=== PATIENT | female | born 1975 | race Hispanic/Latino ===

== ENCOUNTER 2021-12-24 15:06 | Emergency (ER) | payer SELFPAY ==
[2021-12-24 15:45] LABS: Urine Blood Negative (Negative); Urine Glucose Negative (Negative); Urine Protein Trace (Negative); Urine Specific Gravity 1.025 (1.005-1.030)
[2021-12-24 15:51] LABS: Urine Specific Gravity/Preg 1.025 (1.005-1.030)
[2021-12-24] MEDS ORDERED: HYDROMORPHONE HCL 1 MG/ML INJ ONE (16:07)
[2021-12-24] MEDS ORDERED: dexAMETHasone 4 MG/ML VIAL ONE (16:07)
[2021-12-24] MEDS ORDERED: KETOROLAC 30 MG/ML INJ ONE (16:07)
[2021-12-24] MEDS ORDERED: DIAZEPAM 10 MG/2 ML INJ SYRINGE ONE (16:24)
--- NOTE | 2021-12-24 16:25 | RAD REPORT ---
EXAM DESCRIPTION: CT - Spine Lumbar Wo Con - 12/24/2021 4:01 pm CLINICAL HISTORY: radicular pain COMPARISON: None. TECHNIQUE: Thin section axial imaging of the lumbar spine was performed. Sagittal and coronal recon struction images were generated and reviewed. All CT scans are performed using dose optimization technique as appropriate and may include automated exposure control or mA/KV adjustment according to patient size. FINDINGS: Lumbar bodies are normal in height. No acute fracture. No lytic, sclerotic or expansile [place] destructive process. There is a very slight retrolisthesis of L1 on L2. Endplate spurs are scatter ed throughout the lumbar spine. No pathologic bone process seen. L1-2 level: Mild central canal disc bulge is seen with left foraminal disc bulge. Midline canal is 10 mm. Left foraminal encroachment is minimal. L2-3 level: Slight loss in disc height noted. Degenerative gas in the disc space. Mild bulging of dis c material seen across the central canal and into each exit foramen. Bulging disc is more prominent o n the left. There is facet degenerative change and ligamentous thickening present. Left foraminal jaymie nosis is present. L3-4 level: Mild bulging of disc material is present in the central canal and right exit foramen. Rig ht facet hypertrophy is present with mild right foraminal stenosis. Central canal is borderline steno tic. Degenerative gas is present in the disc space. L4-5 disc level: Midline disc bulge is present. No foraminal stenosis. Facet joint degenerative reeves es are present. L5-S1 level: Slight anterior subluxation of L5 on S1 due to advanced facet joint degenerative change. No pars defects seen. Mild bilateral foraminal stenosis present. No central spinal stenosis. IMPRESSION: No fracture or acute vertebral body finding identifiable. Disc bulge changes are present at multiple levels with borderline central spinal stenosis and multipl e levels of foraminal stenosis. Central canal detail is inherently limited. Follow-up outpatient MR imaging may be helpful to more se nsitively assess affects of protruding disc material.
[2021-12-24 16:39] LABS: Absolute Lymphocytes (CBC) 1.4 K/uL (0.7-4.9); Hematocrit 41.4 % (36.0-45.0); Lymphocytes % 14.6 % (15.3-44.8); MCV 93.4 fL (80-100); MPV 9.4 fL (7.6-11.3); RBC Red Blood Cell Count 4.44 M/uL (3.86-4.86)
[2021-12-24 16:49] LABS: Potassium 3.5 mmol/L (3.5-5.1)
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
[2021-12-26 02:59] VITALS: TEMP 98.4
[2021-12-26 03:02] VITALS: BP 189/109; O2SAT 96
== END 2021-12-24 17:23 | disposition home or self-care (01) ==
LOC: ER 15:06
DX: M54.32 Sciatica, left side (principal)
CPT/HCPCS: 36415; 72131; 80048; 81003; 81025; 85025; 96374; 96375; 99284; J1100; J1170; J3360

== ENCOUNTER 2022-05-17 08:11 | Day surgery (SDC) | payer OTHER, SELFPAY ==
[2022-05-15 10:07] LABS: Potassium 3.6 mmol/L (3.5-5.1)
--- NOTE | 2022-05-17 08:03 | EKG ---
Test Date: 2022-05-15 Test Time: 09:35:14 Finance Business Manager: RICKEY MEASUREMENT RESULTS: Intervals: Rate: 61 NH: 144 QRSD: 94 QT: 402 QTc: 404 [place]: P: 50 NH: 144 QRS: 88 T: 5 INTERPRETIVE STATEMENTS: Normal sinus rhythm Normal ECG No previous ECG available for comparison Electronically Signed On 05-17-22 07:57:10 BUTTON SPINDLER by Jordan Gonzalez
[2022-05-17] MEDS ORDERED: Ringers Lactate 1,000 ML IV ONE ×2 (08:37→10:28)
[2022-05-17] MEDS ORDERED: propofoL 200 MG/20 ML VIAL IV ONE (08:47)
[2022-05-17] MEDS ORDERED: FENTANYL CITR 100 MCG/2 ML ONE (08:47)
[2022-05-17] MEDS ORDERED: KETOROLAC 30 MG/ML INJ ONE (08:47)
[2022-05-17] MEDS ORDERED: dexAMETHasone 10 MG/ML VIAL ONE (08:47)
[2022-05-17] MEDS ORDERED: MIDAZOLAM HCL 2 MG/2 ML INJ ONE (08:47)
[2022-05-17] MEDS ORDERED: ROCURONIUM 50 MG/5 ML VIAL IV ONE (08:48)
[2022-05-17] MEDS ORDERED: LIDOCAINE 2% MPF 5 ML VIAL ONE (08:48)
[2022-05-17] MEDS ORDERED: ONDANSETRON 4 MG/2 ML VIAL ONE (08:49)
[2022-05-17] MEDS: CEFAZOLIN SODIUM 2 GM/VIAL ONE ×2 (09:29→09:40)
--- NOTE | 2022-05-17 10:35 | P.OP ---
Preoperative diagnosis: Umbilical Hernia - Incarcerated Postoperative diagnosis: Umbilical Hernia - Incarcerated Primary procedure: Laparoscopic Umbilical Hernia Repair Anesthesia: GETA + Local Estimated blood loss: < 10cc Specimen: none Findings: Incarcerated omental henria - 5cm in size Complications: None Implants: Bard Ventralite ST 11.4cm Round, sorbafix Transferred to: Recovery Room Condition: Good
[2022-05-17] MEDS: HYDROMORPHONE HCL 2 MG/ML inj ONE ×4 (10:51→11:11)
--- NOTE | 2022-05-17 11:02 | OP ---
Date of Procedure: 05/17/2022 Surgeon: Poncho Rose MD, Preoperative Diagnosis: Umbilical hernia, incarcerated. Postoperative Diagnosis: Umbilical hernia, incarcerated. Procedure Performed: Laparoscopic umbilical hernia repair with mesh. Anesthesia: General endotracheal plus local. Estimated Blood Loss: Less than 10 cc. Specimen: None. Findings: Incarcerated omental hernia, approximately 5 cm hernia neck. Complications: None. Implants: Bard Ventralight ST mesh with Echo Positioning System, 11.4 cm round mesh utilized and Sor baFix absorbable fixation tacks, approximately 55 used. Disposition: The patient was transferred to the recovery in good condition. Procedure In Detail: After informed consent was obtained, the patient was brought to the operating r oom, prepped and draped in the usual sterile fashion after adequate anesthesia was achieved. An area of the left upper quadrant was anesthetized with 0.25% Marcaine, sharply incised. A 5 mm trocar was placed under direct visualization evidence of complication. Insufflation was obtained to 15 mmHg at this time. There was no injury to vital structure upon entry into the abdomen. At this point, an a dditional trocar was chosen in the left mid abdomen. This was similarly anesthetized, sharply incise d, and a 12 mm trocar was placed under direct visualization evidence of complication. At this point, an omental incarcerated hernia was appreciated. I took down the omental entrapped hernia using a co mbination of blunt dissection as well as the EnSeal ligation device. All the omentum was returned to the normal anatomic position. There was no resection required as the hernia sac was able to be diss ected free from the omental contents. At this point, I inspected the area, found to be approximately 5 cm in size and therefore I chose an 11.4 cm Bard Ventralight mesh. I first brought in an Endo Sti tc with V-Loc suture. The 0 suture was used to run the defect closed, imbricated the hernia sac in a running fashion with 2 sutures utilized. There was good apposition of the abdominal wall closure. At this point, the 11.[address] mesh with Echo Positioning System was deployed in the abdomen. I made a stab incision in the infraumbilical position and positioned the mesh circumferent ially over the defect with minimum of 5 cm underlay. At this point, the SorbaFix absorbable fixation tack was used to secure a single crown at this point. I then removed the balloon deployment system and found it to be intact on the back table. At this point, I placed a second crown. A total of 55 tacks were utilized to secure the mesh to the anterior abdominal wall with good apposition of mesh to the abdominal wall. No bleeding or other hemostatic maneuvers were required. The patient's positio n slightly rolled away. I then closed the 12 mm trocar site using a Silver suture passer wi th 0 Vicryl in an interrupted fashion with good approximation of tissues. The abdomen was completely desufflated under direct visualization without evidence of complication. Remaining trocars were rem yolanda. All skin incisions were copiously irrigated and closed with a 4-0 Monocryl in running fashion. Dermabond placed over top. The patient tolerated the procedure well without evidence of complicati on and transferred to PACU in good condition. All counts were correct at the end of the case. MATTHEW/JUSTIN Voice ID: [id number] Report ID: [id number]
[2022-05-17] MEDS: HYDROMORPHONE HCL 1 MG/ML INJ ONE ×2 (11:17→11:28)
[2022-05-17 11:42] VITALS: O2SAT 99
[2022-05-17] MEDS ORDERED: HYDROCODONE/APAP 5/325 MG TAB ONE (12:16)
[2022-05-17 13:26] VITALS: BP 162/91
[2022-05-17 13:27] VITALS: TEMP 97
== END 2022-05-17 13:15 | disposition home or self-care (01) ==
LOC: OR 08:11
PROVIDERS: ATTEND Surgery
PROC: 0WUF4JZ Supplement Abdominal Wall with Synthetic Substitute, Percutaneous Endoscopic Approach (ICD-10-PCS; principal; 2022-05-17 09:45)
DX: K42.0 Umbilical hernia with obstruction, without gangrene (principal)
CPT/HCPCS: 36415; 80048; 93005; C1781; J1100; J1170; J2001; J2250; J2405; J2704; J3010; J7120

== ENCOUNTER 2023-11-30 18:57 | Inpatient (IN) | payer OTHER, SELFPAY ==
--- OUTSIDE RECORDS SUMMARY | 2023-11-30 18:59 | XMS REPORT | Continuity of Care Document ---
Author Name Unknown Address [address] [place] [address] [facility] thconnect Address [address] [place] [address] Care Team Providers Care Double End Trimmer Name Role Phone Unavailable Unavailable Unavailable Encounters Start Date/Time End Date/Time Encounter Type Admission Type Attending [facility] Facility Care Department Encounter ID Source 2023-11-27 08:26:48 2023-11-27 08:26:48 Outpatient SFA SFA [id number] Norman Romeo 2023-11-01 11:23:32 2023-11-01 11:23:32 Outpatient SFA SFA [id number] Norman Romeo 2023-10-04 15:41:37 2023-10-04 15:41:37 Outpatient SFA SFA [id number] Norman Romeo 2023-09-10 08:10:52 2023-09-10 08:10:52 Outpatient SFA SFA [id number] Norman Romeo 2023-08-13 09:08:28 2023-08-13 09:08:28 Outpatient SFA SFA [id number] Norman Romeo 2023-07-18 08:13:24 2023-07-18 08:13:24 Outpatient SFA SFA [id number] Norman Romeo 2023-07-01 11:09:47 2023-07-01 11:09:47 Outpatient SFA SFA [id number] Norman Romeo 2023-06-20 14:48:45 2023-06-20 14:48:45 Outpatient SFA SFA [id number] Norman Romeo 2023-05-28 08:22:15 2023-05-28 08:22:15 Outpatient SFA SFA [id number] Norman Romeo 2023-04-30 08:07:16 2023-04-30 08:07:16 Outpatient SFA SFA [id number] Norman Romeo 2023-04-02 09:44:21 2023-04-02 09:44:21 Outpatient SFA SFA [id number] Norman Romeo 2023-03-04 08:30:59 2023-03-04 08:30:59 Outpatient SFA SFA [id number] Norman Singh Ousmane 2023-02-04 07:51:10 2023-02-04 07:51:10 Outpatient SFA SFA [id number] Norman Romeo 2023-01-07 14:04:01 2023-01-07 14:04:01 Outpatient SFA SFA [id number] Norman Romeo 2022-11-15 15:40:20 2022-11-15 15:40:20 Outpatient SFA SFA [id number] Norman Singh Ousmane 2022-10-31 16:40:44 2022-10-31 16:40:44 Outpatient SFA SFA [id number] Norman Singh Ousmane 2022-10-29 10:06:46 2022-10-29 10:06:46 Outpatient SFA SFA [id number] Norman Romeo 2022-10-26 08:27:16 2022-10-26 08:27:16 Outpatient SFA SFA [id number] Norman Singh Ousmane 2022-10-17 15:21:07 2022-10-17 15:21:07 Outpatient SFA SFA [id number] Norman Singh Ousmane 2022-10-12 13:15:02 2022-10-12 13:15:02 Outpatient SFA SFA [id number] Norman Singh Ousmane 2022-10-03 11:05:11 2022-10-03 11:05:11 Outpatient SFA SFA [id number] Norman Singh Ousmane 2022-09-28 08:33:17 2022-09-28 08:33:17 Outpatient SFA SFA [id number] Norman Singh Ousmane 2022-09-21 09:28:18 2022-09-21 09:28:18 Outpatient SFA SFA [id number] Norman Romeo 2022-09-17 10:34:57 2022-09-17 10:34:57 Outpatient SFA SFA [id number] Norman Romeo 2022-09-14 08:25:09 2022-09-14 08:25:09 Outpatient SFA SFA [id number] Norman Romeo 2022-09-07 10:45:20 2022-09-07 10:45:20 Outpatient SFA SFA [id number] Norman Romeo 2022-08-31 10:27:01 2022-08-31 10:27:01 Outpatient SFA SFA [id number] Norman Romeo 2022-08-24 08:42:15 2022-08-24 08:42:15 Outpatient SFA SFA [id number] Norman Romeo 2022-04-30 15:45:04 2022-04-30 15:45:04 Outpatient SFA SFA [id number] Norman Romeo
[2023-11-30] MEDS ORDERED: DIAZEPAM 5 MG TABLET ONE ×2 (19:56→22:06)
[2023-11-30] MEDS ORDERED: HYDRALAZINE HCL 25 MG TABLET ONE ×2 (19:56→23:50)
--- NOTE | 2023-11-30 20:00 | RAD REPORT ---
EXAM DESCRIPTION: CT - Head Brain Wo Cont - 11/30/2023 7:52 pm CLINICAL HISTORY: drake Headache, drowsiness COMPARISON: <Comparisons> TECHNIQUE: All CT scans are performed using dose optimization technique as appropriate and may inclu de automated exposure control or mA/KV adjustment according to patient size. FINDINGS: No intracranial hemorrhage, hydrocephalus or extra-axial fluid collection.21 mm area dimin ished density right basal ganglia likely represents a subacute CVA. The paranasal sinuses and mastoids are clear. The calvarium is intact. IMPRESSION: 21 mm subacute CVA right basal ganglia. No hemorrhage is seen.
[2023-11-30 20:35] LABS: Absolute Eosinophils 0.1 K/uL (0-0.5); Absolute Lymphocytes (CBC) 2.6 K/uL (0.7-4.9); Absolute Monocytes 0.7 K/uL (0.1-1.3); Absolute Neutrophil 6.8 K/uL (1.8-8.0); Basophils % 0.3 % (0-1.3); Eosinophils % 0.8 % (0-4.4); Hematocrit 40.5 % (36.0-45.0); Hemoglobin 13.5 g/dL (12.0-15.0); Lymphocytes % 25.7 % (15.3-44.8); MCH 30.3 pg (27.0-35.0); MCHC 33.3 g/dL (32.0-36.0); MPV 9.9 fL (7.6-11.3); Monocytes % 6.5 % (3.3-12.3); Neutrophils % 66.7 % (41.7-73.7); Platelets 231 thou/uL (152-406); RBC Red Blood Cell Count 4.46 M/uL (3.86-4.86); Red Cell Distribution Width 13.3 % (12.1-15.2)
[2023-11-30 21:12] LABS: PT Prothrombin Time 12.2 SECONDS (9.4-12.5); Protime INR 1.09
[2023-11-30 21:13] LABS: ALT/SGPT 24 U/L (13-56); AST/SGOT 15 U/L (15-37); Albumin 3.4 g/dL (3.4-5.0); Albumin/Globulin Ratio 0.8 (1.1-1.8); Alkaline Phosphatase 123 U/L (45-117); Anion Gap 5.9 mEq/L (5.0-15.0); BUN Blood Urea Nitrogen 8 mg/dL (7-18); Bicarbonate 32 mEq/L (21-32); Bilirubin Total 0.3 mg/dL (0.2-1.0); Globulin 4.1 g/dL (2.3-3.5); Glomerular Filtration Rate 113 ml/min (=/>90); Glucose Level 97 mg/dL (74-106); Magnesium 2.1 mg/dL (1.6-2.4); NT PRO-BNP 124 pg/mL (<125); Potassium 2.9 mEq/L (3.5-5.1); Protein, Total 7.5 g/dL (6.4-8.2); Sodium Level 140 mEq/L (136-145); Troponin High Sensitivity 7.8 pg/mL (<58.9)
[2023-11-30 21:15] LABS: Bilirubin Direct < 0.2 mg/dL (0-0.2); Bilirubin Indirect, Calculated 0.1 mg/dL (0.2-0.8)
[2023-11-30] MEDS ORDERED: CLOPIDOGREL 75 MG TABLET ONE (22:05)
[2023-11-30] MEDS ORDERED: ATORVASTATIN 40 MG TAB ONE (22:05)
[2023-11-30] MEDS ORDERED: ASPIRIN 81 MG CHEWABLE TABLET ONE (22:05)
[2023-11-30] MEDS ORDERED: HYDRALAZINE HCL 20 MG/ML VIAL ONE (22:05)
[2023-11-30] MEDS ORDERED: LOSARTAN POTASSIUM 50 MG TABLET ONE (22:06)
--- NOTE | 2023-11-30 22:23 | RAD REPORT ---
EXAM DESCRIPTION: CT - Head angio - 11/30/2023 9:57 pm CLINICAL HISTORY: CVA SUBACUTE COMPARISON: Head Brain Wo Cont dated 11/30/2023; Neck Angio dated 11/30/2023 TECHNIQUE: CT angiography of the head was performed with MIPs. All CT scans are performed using dose optimization technique as appropriate and may include automated exposure control or mA/KV adjustment according to patient size. FINDINGS: No evidence of large vessel occlusion. No evidence of aneurysm is detected. No flow-limiti ng stenosis or vascular malformation identified. Antegrade flow is seen in the vertebral arteries. The vertebral arteries are codominant. The visualized dural venous sinuses are patent. IMPRESSION: No significant flow abnormality is detected.
--- NOTE | 2023-11-30 22:29 | RAD REPORT ---
EXAM DESCRIPTION: CT - Neck Angio - 11/30/2023 9:57 pm CLINICAL HISTORY: sub acute CVA Headache, drowsiness COMPARISON: <Comparisons> TECHNIQUE: CT angiography of the neck vessels was performed with MIPs. All CT scans are performed using dose optimization technique as appropriate and may include automated exposure control or mA/KV adjustment according to patient size. FINDINGS: A left aortic arch is identified with normal three vessel configuration of the great vesse ls. No significant flow abnormality is seen of the common carotid bilaterally. No significant stenosis is identified involving the cervical segments of both internal carotid arteri es. Normal flow is seen within both vertebral arteries. IMPRESSION: No significant flow abnormality of the neck vessels is identified. NASCET criteria used. Mild 0-49% stenosis Moderate 50-69% stenosis Severe 70-99% stenosis
--- NOTE | 2023-11-30 23:20 | ER ---
Nurse's Notes [facility] Name: Bell Valverde Age: 48 yrs Sex: Female : 1975 Arrival Date: 11/30/2023 Time: 18:57 Bed 20 Private MD: Diagnosis: Essential (primary) hypertension;Left-sided Smith's palsy, subacute CVA, subacute ischemic infarct, hypertensive emergency, uncontrolled hypertension Presentation: 11/29 19:28 Chief complaint: Patient states: facial droop since Saturday night. Coronavirus vc1 screen: Vaccine status: Patient reports being unvaccinated. Client denies travel out of the [place] in the last 14 days. At this time, the client does not indicate any symptoms associated with coronavirus-19. Ebola Screen: Patient negative for fever greater than or equal to 101.5 degrees Fahrenheit, and additional compatible Ebola Virus Disease symptoms Patient denies exposure to infectious person. Patient denies travel to an Ebola-affected area in the 21 days before illness onset. No symptoms or risks identified at this time. Initial Sepsis Screen: Does the patient meet any 2 criteria? No. Patient's initial sepsis screen is negative. Does the patient have a suspected source of infection? No. Patient's initial sepsis screen is negative. Risk Assessment: Do you want to hurt yourself or someone else? Patient reports no desire to harm self or others. Onset of symptoms was November 27, 2023. 19:28 Method Of Arrival: Ambulatory vc1 19:28 Acuity: AUDRA 3 vc1 Triage Assessment: 19:32 General: Appears in no apparent distress. uncomfortable, obese, Behavior is vc1 cooperative, anxious, crying. Pain: Denies pain. EENT: No deficits noted. No signs and/or symptoms were reported regarding the EENT system. Neuro: Speech is normal, Facial droop on left. Cardiovascular: Capillary refill < 3 seconds Patient's skin is warm and dry. Respiratory: Airway is patent Respiratory effort is even, unlabored, Respiratory pattern is regular, symmetrical. GI: No deficits noted. No signs and/or symptoms were reported involving the gastrointestinal system. : No deficits noted. No signs and/or symptoms were reported regarding the genitourinary system. Derm: Skin is intact, is healthy with good turgor, Skin is dry, Skin is normal, Skin temperature is warm. MAT MAKER: 19:32 LMP N/A - Post-menopause, Not vc1 Historical: - Allergies: 19:31 NKA; vc1 - Home Meds: 19:31 None [Active]; vc1 - PMHx: 19:31 Hypertensive disorder; vc1 - PSHx: 19:31 Hernia repair; vc1 - Immunization history:: Client reports having NOT received the Covid vaccine. - Infectious Disease History:: Denies. - Family history:: not pertinent. - Social history:: Smoking status: Patient reports the use of cigarette tobacco products, smokes one pack cigarettes per day. Screenin:30 [place] Swallow Protocol Exclusion Criteria: Unable to remain alert for testing: No NPO me1 for medical/surgical reason by provider order No Head-of-bed restricted <30 degrees Yes Tracheostomy tube present No No thin liquids due to preexisting dysphagia/baseline modified diet thickened liquids No Exclusion Criteria Result: Proceed Brief Cognitive Screen What is your name? Normal, Where are you right now? Normal, What year is it? Normal. Oral Mechanism Examination Facial Symmetry: Normal, 3 oz Water Swallow Challenge: Pt able to drink all water without stopping, coughing, choking or throat clearing: Yes Result: PASS MD Notified: Robel Ralph MD. 19:31 [facility] ED Fall Risk Assessment (Adult) History of falling in the last 3 months, vc1 including since admission No falls in past 3 months (0 pts) Confusion or Disorientation No (0 pts) Intoxicated or Sedated No (0 pts) Impaired Gait No (0 pts) Mobility Assist Device Used No (0 pt) Altered Elimination No (0 pt) Score/Fall Risk Level 0 - 2 = Low Risk Oriented to surroundings, Maintained a safe environment, Educated pt \T\ family on fall prevention, incl call for assistance when getting out of bed. Abuse screen: Denies threats or abuse. Nutritional screening: No deficits noted. Tuberculosis screening: No symptoms or risk factors identified. Assessment: 19:30 Pain: Denies pain. Neuro: Level of Consciousness is awake, alert, obeys commands, me1 Oriented to person, place, time, situation, Appropriate for age. Neuro: Degreaser Operator are equal bilaterally Moves all extremities. Full function Gait is steady, Speech is normal, Facial droop on left, Pupils are PERRLA, Intact Reports left sided facial droop since Saturday. Cardiovascular: Patient's skin is warm and dry. Respiratory: Airway is patent Respiratory effort is even, unlabored, Respiratory pattern is regular, symmetrical. GI: No signs and/or symptoms were reported involving the gastrointestinal system. : No signs and/or symptoms were reported regarding the genitourinary system. EENT: No signs and/or symptoms were reported regarding the EENT system. Derm: Skin is intact, is healthy with good turgor, Skin is pink, warm \T\ dry. Musculoskeletal: No signs and/or symptoms reported regarding the musculoskeletal system. 19:30 General: Appears comfortable, well groomed, well developed, well nourished, Behavior is me1 cooperative, appropriate for age, anxious, Reports left sided facial droop since Saturday. Vital Signs: 19:28 BP 235 / 101; Pulse 68; Resp 20; Temp 98.4; Pulse Ox 100% ; Weight 108.86 kg; Height 5 vc1 ft. 2 in. ; Pain 0/10; 20:00 BP 235 / 101; Pulse 66; Resp 17; Pulse Ox 100% ; me1 21:00 BP 224 / 102; Pulse 67; Resp 16; Pulse Ox 97% ; me1 22:00 BP 191 / 102; Pulse 71; Resp 16; Pulse Ox 98% on R/A; me1 23:00 BP 192 / 105; Pulse 86; Resp 15; Pulse Ox 98% on R/A; me1 23:51 BP 181 / 80; Pulse 85; Resp 16; Pulse Ox 99% on R/A; me1 11/30 00:00 BP 141 / 63; Pulse 77; Resp 18; Pulse Ox 98% on R/A; al5 00:15 BP 136 / 74; Pulse 73; Resp 18; Pulse Ox 97% on R/A; al5 11/29 19:28 Body Mass Index 43.90 (108.86 kg, 157.48 cm) vc1 11/29 19:28 Pain Scale: Adult vc1 NIH Stroke Scale Scores: 11/29 19:19 NIHSS Score: 1 sp4 19:30 NIHSS Score: 2 [facility] [place] ED Course: 18:59 Patient arrived in ED. ra3 19:06 Robel Ralph MD is Attending Physician. sp4 19:30 Triage completed. vc1 19:30 Provided Education on: POC. Verbalized understanding. . me1 19:30 No provider procedures requiring assistance completed. me1 19:32 Arm band placed on left wrist. vc1 19:32 Patient has correct armband on for positive identification. Bed in low position. Call vc1 light in reach. Pulse ox on. NIBP on. 19:54 CT Head Brain wo Cont In Process Unspecified. EDMS 20:09 Bernice Longoria, RN is Primary Nurse. me1 20:17 Initial lab(s) drawn, by co, sent to lab. Inserted saline lock: 22 gauge in right co1 antecubital area, using aseptic technique. 20:17 Basic Metabolic Panel Sent. me1 20:17 CBC with Diff Sent. me1 20:17 LFT's Sent. me1 20:17 Magnesium Sent. me1 20:17 NT PRO-BNP Sent. me1 20:17 PT-INR Sent. me1 20:18 Troponin HS Sent. me1 21:58 CT Neck Angio In Process Unspecified. EDMS 21:58 Head angio In Process Unspecified. EDMS 23:19 Lowell Carmona MD is Hospitalizing Provider. sp4 11/30 01:28 Patient admitted, IV remains in place. al5 Administered Medications: 11/29 19:59 Drug: Diazepam PO 5 mg PO once Route: PO; vc1 22:12 Follow up: Response: No adverse reaction; Anxiety unchanged me1 19:59 Drug: HydrALAZINE PO 50 mg PO once Route: PO; vc1 22:12 Follow up: Response: No adverse reaction; Blood pressure is unchanged me1 22:11 Drug: Aspirin PO Chewable Tablet 81 mg PO once Route: PO; me1 23:44 Follow up: Response: No adverse reaction me1 22:11 Drug: Atorvastatin PO 40 mg PO once Route: PO; me1 23:44 Follow up: Response: No adverse reaction me1 22:11 Drug: Clopidogrel PO 75 mg PO once Route: PO; me1 23:44 Follow up: Response: No adverse reaction me1 22:11 Drug: hydrALAZINE IVP 10 mg IVP once Route: IVP; Site: right antecubital; me1 23:44 Follow up: Response: No adverse reaction; Blood pressure is lowered me1 22:11 Drug: Losartan PO 100 mg PO once Route: PO; me1 23:45 Follow up: Response: No adverse reaction; Blood pressure is lowered me1 22:11 Drug: Diazepam PO 5 mg PO once Route: PO; me1 23:45 Follow up: Response: No adverse reaction; Anxiety decreased me1 23:50 Drug: HydrALAZINE PO 50 mg PO once Route: PO; me1 11/30 00:33 Follow up: Response: No adverse reaction; Blood pressure is lowered al5 Medication: 11/29 19:32 VIS not applicable for this client. vc1 Outcome: 23:19 Decision to Hospitalize by Provider. sp4 11/30 01:28 Admitted to Tele accompanied by tech, via wheelchair, room 219, with chart, al5 Condition: good Instructed on the need for admit, 01:29 Patient left the ED. al5 NIH Stroke Scale - NIH Stroke Score Date: 11/30/2023 Time: 19:19 Total Score = 1 10. Dysarthria (speech clarity - read or repeat words) - 0(Normal) 11. Extinction and Inattention (visual/tactile/auditory/spatial/personal) - 0(No abnormality) 1a. Level of Consciousness (LOC) - 0(Alert) 1b. Level of Consciousness (LOC) (Month \T\ Age) - 0(Both) 1c. LOC Commands (Open \T\ Closes Eyes/Artificial Insemination Technician) - 0(Both) 2. Best Gaze (Lateral Gaze Paresis) - 0(Normal) 3. Visual Field Loss - 0(No visual loss) 4. Facial Palsy - 1(Minor Paralysis) 5a. Left Arm: Motor (10-second hold) - 0(No drift) 5b. Right Arm: Motor (10-second hold) - 0(No drift) 6a. Left Leg: Motor (5-second hold - always test supine) - 0(No drift) 6b. Right Leg: Motor (5-second hold - always test supine) - 0(No drift) 7. Limb Ataxia (finger/nose \T\ heel/petty - test with eyes open) - 0(Absent) 8. Sensory Loss (pinprick arms/legs/face) - 0(Normal) 9. Best Language: Aphasia (description/naming/reading) - 0(No aphasia) Initials: sp4 NIH Stroke Scale - NIH Stroke Score Date: 11/30/2023 Time: 19:30 Total Score = 2 10. Dysarthria (speech clarity - read or repeat words) - 0(Normal) 11. Extinction and Inattention (visual/tactile/auditory/spatial/personal) - 0(No abnormality) 1a. Level of Consciousness (LOC) - 0(Alert) 1b. Level of Consciousness (LOC) (Month \T\ Age) - 0(Both) 1c. LOC Commands (Open \T\ Closes Eyes/Artificial Insemination Technician) - 0(Both) 2. Best Gaze (Lateral Gaze Paresis) - 0(Normal) 3. Visual Field Loss - 0(No visual loss) 4. Facial Palsy - 2(Partial paralysis) 5a. Left Arm: Motor (10-second hold) - 0(No drift) 5b. Right Arm: Motor (10-second hold) - 0(No drift) 6a. Left Leg: Motor (5-second hold - always test supine) - 0(No drift) 6b. Right Leg: Motor (5-second hold - always test supine) - 0(No drift) 7. Limb Ataxia (finger/nose \T\ heel/petty - test with eyes open) - 0(Absent) 8. Sensory Loss (pinprick arms/legs/face) - 0(Normal) 9. Best Language: Aphasia (description/naming/reading) - 0(No aphasia) Initials: me1 Signatures: Dispatcher [employer] EDMS Nisreen Dumont RN RN vc1 Robel Ralph MD MD sp4 Bernice Longoria RN RN me1 Jo-Ann Cedillo ra3 Elizabeth Rojas RN RN al5 Corrections: (The following items were deleted from the chart) 11/29 23:43 23:39 General: Appears comfortable, well groomed, well developed, well me1 nourished, Behavior is cooperative, appropriate for age, anxious, Reports left sided facial droop since Saturday me1 23:43 23:39 Pain: Denies pain. me1 me1 :43 23:39 Neuro: Level of Consciousness is awake, alert, obeys commands, Oriented me1 to person, place, time, situation, Appropriate for age me1 23:43 23:39 Cardiovascular: Patient's skin is warm and dry. me1 me1 23:43 23:39 Respiratory: Airway is patent Respiratory effort is even, unlabored, me1 Respiratory pattern is regular, symmetrical, me1 : 23:39 GI: No signs and/or symptoms were reported involving the gastrointestinal me1 system. me1 23:39 : No signs and/or symptoms were reported regarding the genitourinary me1 system. me1 23:39 EENT: No signs and/or symptoms were reported regarding the EENT system. me1 me1 23:39 Derm: Skin is intact, is healthy with good turgor, Skin is pink, warm \T\ me1 dry. me1 23:39 Musculoskeletal: No signs and/or symptoms reported regarding the me1 musculoskeletal system. me1 23:39 Neuro: Degreaser Operator are equal bilaterally Moves all extremities. Full function me1 Gait is steady, Speech is normal, Facial droop on left, Pupils are PERRLA, Intact Reports left sided facial droop since Saturday. me1
--- NOTE | 2023-11-30 23:20 | EDPHYS ---
Physician Documentation [facility] Name: Bell Valverde Age: 48 yrs Sex: Female : 1975 Arrival Date: 11/30/2023 Time: 18:57 Bed 20 Private MD: ED Physician Robel Ralph HPI: 11/29 19:06 This 48 yrs old Female presents to ER via Unassigned with complaints of Facial sp4 Droop. 19:19 Patient presents with 4 days of left-sided facial asymmetry associated with facial sp4 discomfort also with some biting on the left side of the lip. States this problem occurred on Saturday and has been persistent and causing her anxiety. . 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 - Infectious Disease History:: Denies. - Family history:: not pertinent. - Social history:: Smoking status: Patient reports the use of cigarette tobacco products, smokes one pack cigarettes per day. ROS: 19:19 Constitutional: Negative for fever, chills, and weight loss, positive facial asymmetry, sp4 negative left-sided weakness 19:19 All other systems are negative, Exam: 19:19 Constitutional: This is a well developed, well nourished patient who is awake, alert, sp4 and in no acute distress. Head/Face: Normocephalic, atraumatic. Eyes: Pupils equal round and reactive to light, extra-ocular motions intact. Lids and lashes normal. Conjunctiva and sclera are not injected. Cornea within normal limits. Periorbital areas with no swelling, redness, or edema. ENT: Nares patent. No nasal discharge, no septal abnormalities noted. Tympanic membranes are normal and external auditory canals are clear. Oropharynx with no redness, swelling, or masses, exudates, or evidence of obstruction, uvula midline. Mucous membranes moist. Neck: Trachea midline, no thyromegaly or masses palpated, and no cervical lymphadenopathy. Supple, full range of motion without nuchal rigidity, or vertebral point tenderness. Chest/axilla: Normal chest wall appearance and motion. Nontender with no deformity. No lesions are appreciated. Cardiovascular: Regular rate and rhythm with a normal S1 and S2. No gallops, murmurs, or rubs. Normal PMI, no JVD. No pulse deficits. Respiratory: Lungs have equal breath sounds bilaterally, clear to auscultation and percussion. No rales, rhonchi or wheezes noted. No increased work of breathing, no retractions or nasal flaring. Abdomen/GI: Soft, with normal bowel sounds. No distension or tympany. No guarding or rebound. No evidence of tenderness throughout. Back: No spinal tenderness. No costovertebral tenderness. Skin: Warm, dry with normal turgor. Normal color with no rashes, no lesions, and no evidence of cellulitis. MS/ Extremity: Pulses equal, no cyanosis. Neurovascular intact. Full, normal range of motion. Neuro: Awake and alert, GCS 15, oriented to person, place, time, and situation. grossly intact. Motor strength 5/5 in all extremities. Sensory grossly intact. There is left facial nerve paralysis , Isolated to motor branch, consistent with Left Smith's palsy, Other Cranal Nerve exam is normal Psych: Awake, alert, with orientation to person, place and time. Behavior, mood, and affect are within normal limits, Very anxious appearing 11/30 00:10 ECG was reviewed by the Attending Physician. EKG at 2021 normal sinus rhythm rate 65 sp4 otherwise unremarkable EKG Vital Signs: 11/29 19:28 BP 235 / 101; Pulse 68; Resp 20; Temp 98.4; Pulse Ox 100% ; Weight 108.86 kg; Height 5 vc1 ft. 2 in. ; Pain 0/10; 20:00 BP 235 / 101; Pulse 66; Resp 17; Pulse Ox 100% ; me1 21:00 BP 224 / 102; Pulse 67; Resp 16; Pulse Ox 97% ; me1 22:00 BP 191 / 102; Pulse 71; Resp 16; Pulse Ox 98% on R/A; me1 23:00 BP 192 / 105; Pulse 86; Resp 15; Pulse Ox 98% on R/A; me1 23:51 BP 181 / 80; Pulse 85; Resp 16; Pulse Ox 99% on R/A; me1 08/25 00:00 BP 141 / 63; Pulse 77; Resp 18; Pulse Ox 98% on R/A; al5 00:15 BP 136 / 74; Pulse 73; Resp 18; Pulse Ox 97% on R/A; al5 11/29 19:28 Body Mass Index 43.90 (108.86 kg, 157.48 cm) vc1 11/29 19:28 Pain Scale: Adult vc1 NIH Stroke Scale Scores: 11/29 19:19 NIHSS Score: 1 sp4 19:30 NIHSS Score: 2 me1 MDM: 19:06 Patient medically screened. sp4 23:16 ED course: EXAM DESCRIPTION: CT - Neck Angio - 11/30/2023 9:57 pm CLINICAL HISTORY: sub sp4 acute CVA Headache, drowsiness COMPARISON: TECHNIQUE: CT angiography of the neck vessels was performed with MIPs. All CT scans are performed using dose optimization technique as appropriate and may include automated exposure control or mA/KV adjustment according to patient size. FINDINGS: A left aortic arch is identified with normal three vessel configuration of the great vessels. No significant flow abnormality is seen of the common carotid bilaterally. No significant stenosis is identified involving the cervical segments of both internal carotid arteries. Normal flow is seen within both vertebral arteries. IMPRESSION: No significant flow abnormality of the neck vessels is identified. . ED course: EXAM DESCRIPTION: CT - Head angio - 11/30/2023 9:57 pm CLINICAL HISTORY: CVA SUBACUTE COMPARISON: Head Brain Wo Cont dated 11/30/2023; Neck Angio dated 11/30/2023 TECHNIQUE: CT angiography of the head was performed with MIPs. All CT scans are performed using dose optimization technique as appropriate and may include automated exposure control or mA/KV adjustment according to patient size. FINDINGS: No evidence of large vessel occlusion. No evidence of aneurysm is detected. No flowlimiting stenosis or vascular malformation identified. Antegrade flow is seen in the vertebral arteries. The vertebral arteries are codominant. The visualized dural venous sinuses are patent. IMPRESSION: No significant flow abnormality is detected.. ED course: EXAM DESCRIPTION: CT - Head Brain Wo Cont - 11/30/2023 7:52 pm CLINICAL HISTORY: smith Headache, drowsiness COMPARISON: TECHNIQUE: All CT scans are performed using dose optimization technique as appropriate and may include automated exposure control or mA/KV adjustment according to patient size. FINDINGS: No intracranial hemorrhage, hydrocephalus or extra-axial fluid collection.21 mm area diminished density right basal ganglia likely represents a subacute CVA. The paranasal sinuses and mastoids are clear. The calvarium is intact. IMPRESSION: 21 mm subacute CVA right basal ganglia. No hemorrhage is seen. . ED course: Patient stable for admission for BP management and Stroke work up . 23:20 Data reviewed: vital signs, nurses notes, lab test result(s), EKG, radiologic studies, sp4 CT scan, plain films. Consideration of Admission/Observation Patient was admitted/placed on observation. Escalation of care including admission/observation considered. Management of patient was discussed with the following: Hospitalist: Mathew DENNY . Linderman Operator: Marlon DENNY Neurology . 11/29 19:19 Order name: Basic Metabolic Panel; Complete Time: 21:31 sp4 11/29 19:19 Order name: CBC with Diff; Complete Time: 21:31 sp4 11/29 19:19 Order name: LFT's; Complete Time: 21:31 sp 11/29 19:19 Order name: Magnesium; Complete Time: 21:31 sp4 11/29 19:19 Order name: NT PRO-BNP; Complete Time: 21:31 sp4 11/29 19:19 Order name: PT-INR; Complete Time: 21:31 [facility] 11/29 19:19 Order name: Troponin HS; Complete Time: 21:31 sp4 11/30 00:13 Order name: Urinalysis w/ reflexes [facility] 11/30 00:13 Order name: CBC with Automated Diff [facility] 11/30 00:13 Order name: CBC with Automated Diff [facility] 11/30 00:13 Order name: Comprehensive Metabolic Panel [facility] 11/30 00:13 Order name: Comprehensive Metabolic Panel [facility] 11/29 19:19 Order name: CT Head Brain wo Cont; Complete Time: 21:31 sp4 11/29 21:35 Order name: CT Neck Angio; Complete Time: 23:56 sp4 11/29 21:45 Order name: Head angio; Complete Time: 23:56 [facility] 11/30 00:15 Order name: Brain Wo Cont [facility] 11/29 19:19 Order name: EKG; Complete Time: 19:19 sp4 11/30 00:13 Order name: CONS Physician Consult [facility] 11/29 19:19 Order name: Cardiac monitoring; Complete Time: 20:51 sp4 11/29 19:19 Order name: EKG - Nurse/Tech; Complete Time: 20:51 sp4 11/29 19:19 Order name: IV Saline Lock; Complete Time: 20:17 sp4 11/29 19:19 Order name: Labs collected and sent; Complete Time: 20:17 sp4 11/29 19:19 Order name: O2 Per Protocol; Complete Time: 20:17 sp4 11/29 19:19 Order name: O2 Sat Monitoring; Complete Time: 20:17 sp4 EC/25 00:10 Rate is 65 beats/min. Rhythm is regular, Normal Sinus Rhythm. QRS [place] is Normal. CA sp4 interval is normal. QRS interval is normal. QT interval is normal. No Q waves. T waves are Normal. No ST changes noted. Clinical impression: No evidence of ischemia. Interpreted by me. Reviewed by me. Administered Medications: 11/29 19:59 Drug: Diazepam PO 5 mg PO once Route: PO; vc1 22:12 Follow up: Response: No adverse reaction; Anxiety unchanged me1 19:59 Drug: HydrALAZINE PO 50 mg PO once Route: PO; vc1 22:12 Follow up: Response: No adverse reaction; Blood pressure is unchanged me1 22:11 Drug: Aspirin PO Chewable Tablet 81 mg PO once Route: PO; me1 23:44 Follow up: Response: No adverse reaction me1 22:11 Drug: Atorvastatin PO 40 mg PO once Route: PO; me1 23:44 Follow up: Response: No adverse reaction me1 22:11 Drug: Clopidogrel PO 75 mg PO once Route: PO; me1 23:44 Follow up: Response: No adverse reaction me1 22:11 Drug: hydrALAZINE IVP 10 mg IVP once Route: IVP; Site: right antecubital; me1 23:44 Follow up: Response: No adverse reaction; Blood pressure is lowered me1 22:11 Drug: Losartan PO 100 mg PO once Route: PO; me1 23:45 Follow up: Response: No adverse reaction; Blood pressure is lowered me1 22:11 Drug: Diazepam PO 5 mg PO once Route: PO; me1 23:45 Follow up: Response: No adverse reaction; Anxiety decreased me1 23:50 Drug: HydrALAZINE PO 50 mg PO once Route: PO; me1 11/30 00:33 Follow up: Response: No adverse reaction; Blood pressure is lowered al5 Disposition Summary: 11/30/23 23:19 Hospitalization Ordered Notes: Hospitalization Status: Inpatient Admission sp4 Provider: Lowell Carmona Location: Telemetry/MedSurg (Inpatient) sp4 Condition: Stable sp4 Problem: new sp4 Symptoms: have improved sp4 Bed/Room Type: Standard sp4 Room Assignment: 219(12/01/23 00:26) sp Diagnosis - Essential (primary) hypertension sp4 - Left-sided Smith's palsy, subacute CVA, subacute ischemic infarct, hypertensive sp4 emergency, uncontrolled hypertension Forms: - Medication Reconciliation Form sp4 - SBAR form sp4 - Leadership Thank You Letter sp4 Critical care time excluding procedures: 11/29 23:19 Critical care time: Bedside Care: 36 minutes, Consultation: 12 minutes, Family sp4 Intervention: 12 minutes. Total time: 60 minutes NIH Stroke Scale - NIH Stroke Score Date: 11/30/2023 Time: 19:19 Total Score = 1 10. Dysarthria (speech clarity - read or repeat words) - 0(Normal) 11. Extinction and Inattention (visual/tactile/auditory/spatial/personal) - 0(No abnormality) 1a. Level of Consciousness (LOC) - 0(Alert) 1b. Level of Consciousness (LOC) (Month \T\ Age) - 0(Both) 1c. LOC Commands (Open \T\ Closes Eyes/Pierce [employer]ave [employer] Operator) - 0(Both) 2. Best Gaze (Lateral Gaze Paresis) - 0(Normal) 3. Visual Field Loss - 0(No visual loss) 4. Facial Palsy - 1(Minor Paralysis) 5a. Left Arm: Motor (10-second hold) - 0(No drift) 5b. Right Arm: Motor (10-second hold) - 0(No drift) 6a. Left Leg: Motor (5-second hold - always test supine) - 0(No drift) 6b. Right Leg: Motor (5-second hold - always test supine) - 0(No drift) 7. Limb Ataxia (finger/nose \T\ heel/petty - test with eyes open) - 0(Absent) 8. Sensory Loss (pinprick arms/legs/face) - 0(Normal) 9. Best Language: Aphasia (description/naming/reading) - 0(No aphasia) Initials: sp4 NIH Stroke Scale - NIH Stroke Score Date: 11/30/2023 Time: 19:30 Total Score = 2 10. Dysarthria (speech clarity - read or repeat words) - 0(Normal) 11. Extinction and Inattention (visual/tactile/auditory/spatial/personal) - 0(No abnormality) 1a. Level of Consciousness (LOC) - 0(Alert) 1b. Level of Consciousness (LOC) (Month \T\ Age) - 0(Both) 1c. LOC Commands (Open \T\ Closes Eyes/Pierce And Shave Press Operator) - 0(Both) 2. Best Gaze (Lateral Gaze Paresis) - 0(Normal) 3. Visual Field Loss - 0(No visual loss) 4. Facial Palsy - 2(Partial paralysis) 5a. Left Arm: Motor (10-second hold) - 0(No drift) 5b. Right Arm: Motor (10-second hold) - 0(No drift) 6a. Left Leg: Motor (5-second hold - always test supine) - 0(No drift) 6b. Right Leg: Motor (5-second hold - always test supine) - 0(No drift) 7. Limb Ataxia (finger/nose \T\ heel/petty - test with eyes open) - 0(Absent) 8. Sensory Loss (pinprick arms/legs/face) - 0(Normal) 9. Best Language: Aphasia (description/naming/reading) - 0(No aphasia) Initials: me1 Signatures: Dispatcher [employer] EDCarmen Finch Vanessa, RN RN vc1 Robel Ralph MD MD sp4 Bernice Longoria RN RN me1 Elizabeth Rojas RN al5 Corrections: (The following items were deleted from the chart) 11/30 00:26 11/29 23:19 spLeigh sp
[2023-12-01] MEDS ORDERED: NA CHLORIDE 0.9% 1,000 ML ONE (00:01)
--- NOTE | 2023-12-01 00:06 | P.HP ---
Certification for Inpatient Patient admitted to: Observation With expected LOS: <2 Midnights Practitioner: I am a practitioner with admitting privileges, knowledge of patient current condition, hospital course, and medical plan of care. Services: Services provided to patient in accordance with Admission requirements found in Title 42 Section 412.3 of the Code of Federal Regulations Patient History Date of Service: 12/01/23 Reason for admission: Facial droop History of Present Illness: 48 yrs old Female with past medical history of hypertension came to ER with facial droop . Started 4 days ago she noticed that she had a left-sided facial asymmetry associated with facial discomfort and also by the on the left side of the lip . Patient started having these symptoms since Saturday and was brought to ER because she was anxious for there is a stroke. Denies any headache. No nausea vomiting or diarrhea. No sick contacts. No focal weakness of the body other than the face. No fever or chills Patient was assessed in the ER and was admitted for possibility to rule out CVA Allergies No Known Allergies Allergy (Verified 05/15/22 09:23) Home medications list reviewed: Yes Home Medications: NK [No Home Meds] 12/01/23 - Past Medical/Surgical History Past Medical History: Reviewed- Non-Contributory -: Hypertension Past Surgical History: Reviewed- Non-Contributory - Family History Family History: Reviewed- Non-Contributory - Social History Smoking Status: Never smoker Review of Systems 10-point ROS is otherwise unremarkable Physical Examination - Vital Signs Temperature: 98.4 F Blood Pressure: 222/100 Pulse: 68 Respirations: 18 Pulse Ox (%): 94 - Physical Exam General: Alert, In no apparent distress, Oriented x3, Obese HEENT: Atraumatic, Normocephalic Neck: Supple, No Thyromegaly Respiratory: Clear to auscultation bilaterally, Normal air movement Cardiovascular: Regular rate/rhythm, Normal S1 S2 Capillary refill: <2 Seconds Gastrointestinal: Soft and benign, Non-distended, W/out hepatosplenomegaly Musculoskeletal: No clubbing, No swelling Integumentary: No rashes, No breakdown Neurological: Normal speech, Normal strength at 5/5 x4 extr, Other (Facial palsy), Abnormal cranial nerve function Lymphatics: No axilla or inguinal lymphadenopathy - Studies Laboratory Data (last 24 hrs) 11/30/23 11/30/23 11/30/23 20:16 20:16 20:16 WBC 10.10 Hgb 13.5 Hct 40.5 Plt Count 231 PT 12.2 INR 1.09 Sodium 140 Potassium 2.9 L BUN 8 Creatinine 0.57 Glucose 97 Magnesium 2.1 Total Bilirubin 0.3 AST 15 ALT 24 Alkaline Phosphatase 123 H Assessment and Plan - Plan To rule out CVA/TIA No focal weakness Numbness of left-sided face Started on aspirin and statin CT CTA findings noted 21 mm subacute CVA right basal ganglia. No hemorrhage is seen. MRI brain ordered Monitor neuro vital signs Monitor under telemetry Neurology consult ? Smith's palsy Supportive management Started on steroids if MRI is negative Accelerated hypertension Antihypertensives titrated Permissible hypertension for first 24 hours We will get a lipid panel and an A1c Obesity Advise lifestyle modification GI/DVT prophylaxis Advanced directive full code Discharge Plan: Home Plan to discharge in: 48 Hours - Advance Directives Does patient have a Living Will: No Does patient have a Durable POA for Healthcare: No - Code Status/Comfort Care Code Status: Full Code Time Spent Managing Pts Care (In Minutes): 48
[2023-12-01] MEDS ORDERED: ACETAMINOPHEN 325 MG TABLET PO PRN (00:07)
[2023-12-01] MEDS ORDERED: ONDANSETRON 4 MG/2 ML VIAL IV PRN (00:07)
[2023-12-01 01:24] VITALS: BMI 45.1
[2023-12-01] MEDS: NS KCL 20MEQ 20 MEQ/1,000 ML BAG IV SCH (01:46)
[2023-12-01] MEDS: carvediloL 3.125 MG TAB PO SCH (06:05)
[2023-12-01] MEDS: ASPIRIN EC 81 MG TAB PO SCH (06:05)
[2023-12-01 07:18] LABS: Sqamous Epithelial <5 /HPF (None Seen); Urine Bacteria <20 /HPF (<20); Urine Bilirubin NEGATIVE (Negative); Urine Blood Negative (Negative); Urine Clarity Clear (Clear); Urine Color Yellow (Yellow); Urine Culture Reflex Order NOT NEEDED; Urine Glucose NEGATIVE (Negative); Urine Ketones NEGATIVE (Negative); Urine Microscopic Reflex YN ORDER UMIC; Urine Nitrite NEGATIVE (Negative); Urine Protein TRACE (Negative); Urine RBC <5 /HPF (None Seen); Urine Urobilinogen 1+ (Normal); Urine WBC <5 /HPF (<5)
[2023-12-01 07:37] LABS: Specific Gravity > 1.030 (1.005-1.030)
[2023-12-01] MEDS: AMLODIPINE 2.5 MG TAB PO SCH (09:15)
--- NOTE | 2023-12-01 13:18 | P.PN ---
Date of Service: 12/01/23 Patient seen and examined. Left facial weakness. No problem with swallowing speech is elevated slurred. Blood pressure is significantly elevated with systolic in the 200s. Plan: Permissive hypertension. Low-dose amlodipine to bring systolic blood pressure to less than 200. Hydralazine as needed for BP spikes. Aspirin, Plavix DVT prophylaxis with Lovenox. Echocardiogram is pending MRI of the brain is pending. Neurology consulted. Neurochecks. Patient is ambulatory and has no PT needs.
[2023-12-01] MEDS: ALPRAZOLAM 0.5 MG TABLET PO PRN (16:06)
[2023-12-01] MEDS: POTASSIUM CL SA 10 MEQ TAB PO ONE ×2 (17:11→17:30)
[2023-12-01] MEDS: HYDRALAZINE HCL 20 MG/ML VIAL IV PRN (21:28)
[2023-12-01] MEDS: ATORVASTATIN 40 MG TAB PO SCH (21:28)
[2023-12-02 06:34] LABS: Absolute Basophils 0.1 K/uL (0-0.5); Absolute Eosinophils 0.2 K/uL (0-0.5); Absolute Lymphocytes (CBC) 3.2 K/uL (0.7-4.9); Absolute Monocytes 0.7 K/uL (0.1-1.3); Absolute Neutrophil 4.1 K/uL (1.8-8.0); Basophils % 0.8 % (0-1.3); Hematocrit 36.7 % (36.0-45.0); Hemoglobin 12.4 g/dL (12.0-15.0); Lymphocytes % 39.3 % (15.3-44.8); MCH 30.5 pg (27.0-35.0); MCHC 33.8 g/dL (32.0-36.0); MCV 90.1 fL (80-100); MPV 9.7 fL (7.6-11.3); Neutrophils % 49.9 % (41.7-73.7); Nucleated Red Blood Cells % 0.3 % (0-0); Platelets 201 thou/uL (152-406); RBC Red Blood Cell Count 4.07 M/uL (3.86-4.86); Red Cell Distribution Width 13.3 % (12.1-15.2)
[2023-12-02 07:03] LABS: Albumin/Globulin Ratio 0.9 (1.1-1.8); Anion Gap 5.4 mEq/L (5.0-15.0); Bilirubin Total 0.4 mg/dL (0.2-1.0); Globulin 3.5 g/dL (2.3-3.5); Potassium 3.4 mEq/L (3.5-5.1); Protein, Total 6.5 g/dL (6.4-8.2)
--- NOTE | 2023-12-02 09:29 | RAD REPORT ---
EXAM DESCRIPTION: MRI - Brain Wo Cont - 12/02/2023 9:01 am CLINICAL HISTORY: CVA COMPARISON: Noncontrast head CT and CT angiogram 11/30/2023 TECHNIQUE: Multiplanar multisequence MRI of the brain performed without IV contrast. FINDINGS: Motion artifact somewhat limits evaluation, despite attempts at repeat imaging. Focus of diffusion restriction involving the right lentiform nucleus posteriorly extending along the centrum semiovale, corresponding to the focus of hypoattenuation seen on the prior CT. There is corre sponding T2/FLAIR hyperintensity. Stable associated minimal mass effect. No other diffusion signal ab normality. No evidence of acute intracranial hemorrhage or abnormal extra-axial fluid collections. Ventricular caliber within normal for age. Incidentally noted partially empty sella. Midline structur es are otherwise unremarkable. Other minimal scattered subcortical and deep white matter T2/FLAIR hyperintensities, nonspecific, but suggestive of chronic small vessel ischemic changes. No other mass effect or midline shift. Major vascular flow voids are preserved. Patchy opacification of the mastoid air cells more so on the right. Visualized paranasal sinuses are well aerated. IMPRESSION: Late acute to subacute infarct involving the right lentiform nucleus and centrum semiova le. No evidence of hemorrhagic transformation or worsening mass effect. No other acute intracranial findings.
[2023-12-02] MEDS: AMLODIPINE 5 MG TAB PO SCH (09:35)
[2023-12-02] MEDS: CLOPIDOGREL 75 MG TABLET PO SCH (09:36)
--- NOTE | 2023-12-02 12:39 | EKG ---
Test Date: 2023-11-30 Test Time: 20:22:55 Lithographic Camera Operator: MEASUREMENT RESULTS: Intervals: Rate: 65 IL: 142 QRSD: 90 QT: 420 QTc: 436 [place]: P: -6 IL: 142 QRS: 86 T: 27 INTERPRETIVE STATEMENTS: Normal sinus rhythm Nonspecific T wave abnormality Abnormal ECG Compared to ECG 05/15/2022 09:35:14 T-wave abnormality now present Electronically Signed On 12-02-23 12:38:20 CDT by Charles Mancia
[2023-12-02] MEDS: POTASSIUM CL SA 10 MEQ TAB PO ONE (12:47)
[2023-12-02] MEDS: ENOXAPARIN 40 MG/0.4 ML SQ SCH (14:19)
--- NOTE | 2023-12-02 18:17 | P.PN ---
Subjective Date of Service: 12/02/23 Chief Complaint: Facial droop Patient's left facial droop noted to be improved. She denies any dysphagia. She denies any limb weakness. Physical Examination - Vital Signs Temperature: 97.8 F Blood Pressure: 187/99 Pulse: 77 Respirations: 16 Pulse Ox (%): 99 Assessment And Plan - Plan Physical Examination General: Alert and oriented x 3, not in acute distress. Obese. HEENT: PERRLA, EOMI, anicteric sclera, conjunctiva not pale. Neck: Supple, no elevated JVD, no thyromegaly. Lungs: Clear to auscultation bilaterally. No rhonchi, no rales, no crackles. Heart: S1-S2 heard, rapid, no murmur no gallop no rub. Normal capillary refill. Abdomen: Soft, nontender, nondistended, no hepatosplenomegaly. Extremities: No pedal edema. No deformity. Neuro: Left facial weakness, no limb weakness, power 5/5 in all extremities. Psychiatry: Awake, normal behavior, normal affect. Skin: Warm and dry, no rashes. Acute CVA Left facial weakness MRI of the brain report late acute to subacute infarct involving the right lentiform nucleus and centrum semiovale Echocardiogram is pending Continue aspirin, Plavix and statin Neuro checks. Patient is ambulating independently and has no PT needs, she has no problem with swallowing and has no speech needs. Neurology consulted Check lipid panel Accelerated hypertension Amlodipine 10 mg daily. Hydralazine as needed for BP spikes. Morbid obesity Weight loss by diet and exercise advised. GI/DVT prophylaxis: Lovenox Advanced directive full code
[2023-12-02] MEDS: AMLODIPINE 10 MG TAB PO SCH (20:29)
--- NOTE | 2023-12-03 00:36 | CON ---
Reason For Consultation: Consultation called because of stroke. History Of Present Illness: Ms. Valverde is a 48-year-old patient with uncontrolled hypertensi on, morbid obesity, who developed left facial droop about 4 days prior to her coming to hospital. He r symptoms did not improve. She was losing liquids from the corner of the mouth and was brought to [facility] because of anxiety. Her imaging identified on MRI, an acute to subacute stroke. This was after a CT scan on the day of admission identified a 21 mm subacute right basal ganglia stro ke. The patient was well out of the window for TNKs and any intra-arterial thrombolysis. CT angiogr am of her neck identified no significant abnormalities. CT angiogram of her head showed no significa nt flow abnormalities. She was not taking aspirin or any antiplatelet medications and had elevated b lood pressures. She was put on aspirin 81 mg daily, Plavix 75 mg daily along with Lovenox for DVT pr ophylaxis and Norvasc with Coreg for blood pressure control. Since onset, she has noted some moderat e improvement in her symptoms involving the face. She denies any significant weakness in the extremi ties, any sensory loss in the extremities. There is some facial decreased sensation. Her complete blood count differential is completely normal. Coagulation panel is normal. Her compre hensive metabolic panel shows elevated glucose ranging up to 127. Potassium was low at 3.4, otherwis e liver function studies unremarkable. Urinalysis is essentially unremarkable. Past Medical History: Hypertension. Allergies: NO KNOWN DRUG ALLERGIES. Medications: At home, she was not taking medications. Family History: Positive for stroke in father. Social History: The patient is a smoker. Denies illegal drugs or alcohol use. Current Medications: Tylenol 650 every 4 hours as needed, Xanax 0.5 mg 3 times daily as needed, Norv asc 10 mg daily, aspirin 81 mg daily, Lipitor 40 mg at bedtime, Coreg 3.125 mg twice daily, Plavix 75 mg daily, Lovenox 40 mg subcutaneously daily, Zofran 4 mg every 6 hours as needed, Apresoline 10 mg as needed for systolic blood pressure greater than 170. Does have potassium replacement on board. Review of Systems: Aside from mentioned above, she denies any prior nausea, vomiting, myalgias, arthralgias, rash, heada kishan, weight change. Since symptom onset, had nausea, which is improving, some improvement in her lef t facial droop, otherwise unremarkable. Physical Examination: Vital Signs: Blood pressure 187/99, pulse 77, respiratory rate 16, temperature 97.8, oxygen saturati on 99%. General: Ms. Valverde is resting comfortably in bed. HEENT: She is normocephalic, atraumatic. Sclerae anicteric. Oropharynx is pink and moist. Neck: Supple. Chest: Clear. Heart: Regular. Extremities: Show no clubbing, cyanosis, or edema. Note, she has class 3 obesity, BMI 45.1. Neurologic: Cranial nerves examination, she has a decreased left nasolabial fold with fair excursion s and smiling and mild decreased sensation of left face compared to right side. Otherwise, cranial n erves intact. Motor examination, subtle weakness of left upper compared to right upper extremity jami und 5-/5 in the right side, 5/5 in lower extremity, 5/5 proximally distally. Sensation decreased sli ghtly in the left compared to right upper extremity. Coordination intact in both upper and lower ext remities. Gait has good stance, stride, and arm swing. Assessment: Ms. Valverde is a 48-year-old patient with a right basal ganglia stroke on a CT scan, which on brain MRI shows it to be late acute to subacute in the right lentiform nucleus and centrum semiov tonio. There was no hemorrhagic conversion. Risk factors are uncontrolled hypertension and class 3 ob esity along with cigarette smoking. In addition, she has family history of stroke. Plan: Aspirin, Plavix, folic acid, and statin as noted. Manage blood pressures to keep less than 18 0 systolic and around 130-140 over the next several days. May normalize in about 2-3 weeks from the acute stroke. She is doing very well. Does not need physical therapy, occupational therapy, but out patient speech may be considered. She may be discharged and follow up in Dr. Mason's clinic with[facility] cna[facility] the month. RAZA/JUSTIN Voice ID: [id number] Report ID: [id number]
[2023-12-03 06:10] LABS: Anion Gap 6.7 mEq/L (5.0-15.0); Magnesium 1.9 mg/dL (1.6-2.4); Potassium 3.7 mEq/L (3.5-5.1)
[2023-12-03] MEDS: POTASSIUM CL SA 10 MEQ TAB PO ONE (10:44)
[2023-12-03 11:00] VITALS: O2SAT 97
[2023-12-03 13:20] VITALS: BP 163/96; TEMP 97.5
--- NOTE | 2023-12-03 14:21 | P.DS ---
Admission Date: 12/02/23 Discharge Date: 12/03/23 Disposition: ROUTINE DISCHARGE Discharge Condition: GOOD Reason for Admission: Facial droop Consultations: NeurologyDr. Mason Brief History of Present Illness: 48 yrs old Female with past medical history of hypertension came to ER with facial droop . Started 4 days ago she noticed that she had a left-sided facial asymmetry associated with facial discomfort and also by the on the left side of the lip . Patient started having these symptoms since Saturday and was brought to ER because she was anxious for there is a stroke. Denies any headache. No nausea vomiting or diarrhea. No sick contacts. No focal weakness of the body other than the face. No fever or chills Patient was assessed in the ER and was admitted for possibility to rule out CVA Hospital Course: Assessment Acute CVA Left facial weakness Accelerated hypertension Morbid obesity Patient was admitted to the hospital for left-sided facial droop. She is also noted to be markedly hypertensive with initial blood pressure of 235/101. During her hospitalization an MRI was obtained which showed late acute to subacute infarct involving the right lentiform nucleus and centrum semieval, no evidence of hemorrhagic transformation or worsening mass effect. CTA of the head and neck were obtained which were negative for large vessel occlusion or other significant findings. At home patient was not on any blood pressure medications prior to hospitalization, she was started on carvedilol 3.125 mg by mouth twice daily, Norvasc 10 mg daily as well as aspirin, Plavix, atorvastatin. She still having some left-sided facial droop but otherwise no other neurological deficits are present. Echo was obtained prior to discharge from the hospital. Please follow-up with your primary care doctor in 1 week Please also follow-up with neurologyDr. Mason in 1 to 2 weeks Prescriptions for your new blood pressure, cholesterol and blood thinning medication were sent to [facility] in [place]. Please also take a baby aspirin daily 81 mg [id number]. Physical Examination General: Alert and oriented x 3, not in acute distress. Obese. HEENT: PERRLA, EOMI, anicteric sclera, conjunctiva not pale. Neck: Supple, no elevated JVD, no thyromegaly. Lungs: Clear to auscultation bilaterally. No rhonchi, no rales, no crackles. Heart: S1-S2 heard, rapid, no murmur no gallop no rub. Normal capillary refill. Abdomen: Soft, nontender, nondistended, no hepatosplenomegaly. Extremities: No pedal edema. No deformity. Neuro: Left facial weakness, no limb weakness, power 5/5 in all extremities. Psychiatry: Awake, normal behavior, normal affect. Skin: Warm and dry, no rashes. Vital Signs/Physical Exam: Temp Pulse Resp BP Pulse Ox 97.5 F 74 16 163/96 H 95 12/03/23 12:00 12/03/23 12:00 12/03/23 12:00 12/03/23 12:00 12/03/23 12:00 General: Alert, In no apparent distress, Oriented x3 HEENT: Atraumatic, PERRLA, EOMI Neck: Supple, JVD not distended Respiratory: Clear to auscultation bilaterally, Normal air movement Cardiovascular: Regular rate/rhythm, Normal S1 S2 Gastrointestinal: Normal bowel sounds, No tenderness Musculoskeletal: No tenderness Integumentary: No rashes Neurological: Normal affect, Other (left facial droop, NIH-1) Lymphatics: No axilla or inguinal lymphadenopathy Laboratory Data at Discharge: WBC 8.20 thou/uL (4.3-10.9) 12/02/23 06:11 Hgb 12.4 g/dL (12.0-15.0) 12/02/23 06:11 Hct 36.7 % (36.0-45.0) 12/02/23 06:11 Plt Count 201 thou/uL (152-406) 12/02/23 06:11 PT 12.2 SECONDS (9.4-12.5) 11/30/23 20:16 INR 1.09 11/30/23 20:16 Sodium 139 mEq/L (136-145) 12/03/23 05:04 Potassium 3.7 mEq/L (3.5-5.1) 12/03/23 05:04 BUN 10 mg/dL (7-18) 12/03/23 05:04 Creatinine 0.54 mg/dL (0.55-1.02) L 12/03/23 05:04 Glucose 97 mg/dL (74-106) 12/03/23 05:04 Magnesium 1.9 mg/dL (1.6-2.4) 12/03/23 05:04 Total Bilirubin 0.4 mg/dL (0.2-1.0) 12/02/23 06:11 AST 11 U/L (15-37) L 12/02/23 06:11 ALT 19 U/L (13-56) 12/02/23 06:11 Alkaline Phosphatase 102 U/L (45-117) 12/02/23 06:11 Triglycerides 57 mg/dL (<150) 12/03/23 05:04 Cholesterol 112 mg/dL (<200) 12/03/23 05:04 HDL Cholesterol 41 mg/dL (40-60) 12/03/23 05:04 Cholesterol/HDL Ratio 2.73 12/03/23 05:04 Home Medications: Amlodipine [Norvasc*] 10 mg PO DAILY #30 tab 12/03/23 Atorvastatin Calcium [Lipitor] 40 mg PO BEDTIME #30 tab 12/03/23 Clopidogrel Bisulfate [Plavix*] 75 mg PO DAILY #30 tab 12/03/23 carvediloL [Coreg*] 3.125 mg PO BID 6AM 6PM #60 tab 12/03/23 New Medications: carvediloL [Coreg*] 3.125 mg PO BID 6AM 6PM #60 tab Atorvastatin Calcium [Lipitor] 40 mg PO BEDTIME #30 tab Amlodipine [Norvasc*] 10 mg PO DAILY #30 tab Clopidogrel Bisulfate [Plavix*] 75 mg PO DAILY #30 tab Physician Discharge Instructions: Patient was admitted to the hospital for left-sided facial droop. She is also noted to be markedly hypertensive with initial blood pressure of 235/101. During her hospitalization an MRI was obtained which showed late acute to subacute infarct involving the right lentiform nucleus and centrum semieval, no evidence of hemorrhagic transformation or worsening mass effect. CTA of the head and neck were obtained which were negative for large vessel occlusion or other significant findings. At home patient was not on any blood pressure medications prior to hospitalization, she was started on carvedilol 3.125 mg by mouth twice daily, Norvasc 10 mg daily as well as aspirin, Plavix, atorvastatin. She still having some left-sided facial droop but otherwise no other neurological deficits are present. Echo was obtained prior to discharge from the hospital. Please follow-up with your primary care doctor in 1 week Please also follow-up with neurologyDr. Mason in 1 to 2 weeks Prescriptions for your new blood pressure, cholesterol and blood thinning medication were sent to [facility] in [place]. Please also take a baby aspirin daily 81 mg [id number]. Activity: Ad omar Followup: Omar Mason MD [ASSOCIATE-ACTIVE - CAN ADMIT] - 1-2 Weeks NONE,NONE [Primary Care Provider] - 1 Week Time spent managing pt's care (in minutes): 36
--- NOTE | 2023-12-04 07:13 | ECHO ---
HEIGHT: 5 ft 2 in WEIGHT: 246 lb 8 oz DATE OF STUDY: 12/03/[address]: Ronald Tarango MD 2-DIMENSIONAL: YES M.MODE: YES DOPPLER: YES COLOR FLOW: YES TDS: PORTABLE: YES DEFINITY: BUBBLE STUDY: DIAGNOSIS: ACUTE CEREBRAL VASCULAR ACCIDENT CARDIAC HISTORY: CATHERIZATION: NO SURGERY: NO PROSTHETIC VALVE: NO PACEMAKER: NO MEASUREMENTS (cm) DIASTOLIC (NORMALS) SYSTOLIC (NORMALS) IVSd 1.0 (0.6-1.2) LA Diam 3.6 (1.9-4.0) LVEF 60-65% LVIDd 4.7 (3.5-5.7) LVIDs 2.9 (2.0-3.5) %FS 37% LVPWd 1.1 (0.6-1.2) Ao Diam 2.9 (2.0-3.7) 2 DIMENSIONAL ASSESSMENT: RIGHT ATRIUM: NORMAL LEFT ATRIUM: NORMAL RIGHT VENTRICLE: NORMAL LEFT VENTRICLE: NORMAL TRICUSPID VALVE: NORMAL MITRAL VALVE: NORMAL PULMONIC VALVE: NORMAL AORTIC VALVE: NORMAL PERICARDIAL EFFUSION: NONE AORTIC ROOT: NORMAL LEFT VENTRICULAR WALL MOTION: NORMAL DOPPLER/COLOR FLOW: NORMAL COMMENTS: 1. NORMAL LEFT VENTRICULAR SYSTOLIC FUNCTION, NORMAL WALL MOTION, EJECTION FRACTION 60-65% 2. NORMAL DIASTOLIC FUNCTION TECHNOLOGIST: AMBER MUÑOZ
== END 2023-12-03 13:23 | disposition home or self-care (01) | DRG 65 ==
LOC: ER 18:57 → 2ND 12-01 00:07 → OBSVTOIN 12-02 17:46
PROVIDERS: ADMIT Family Medicine; ATTEND Hospitalist
DX: I63.9 Cerebral infarction, unspecified (principal); I16.1 Hypertensive emergency; Z68.42 Body mass index [BMI] 45.0-49.9, adult; E66.01 Morbid (severe) obesity due to excess calories; F41.9 Anxiety disorder, unspecified; I10 Essential (primary) hypertension; F17.210 Nicotine dependence, cigarettes, uncomplicated; R29.701 NIHSS score 1; R29.810 Facial weakness; Z79.02 Long term (current) use of antithrombotics/antiplatelets; Z28.310 Unvaccinated for COVID-19; Z79.899 Other long term (current) drug therapy
CPT/HCPCS: 36415; 70450; 70496; 70498; 70551; 80048; 80053; 80061; 80076; 81001; 82947; 83036; 83735; 83880; 84132; 84484; 85025; 85610; 93005; 93306; 96374; 99285; G0378; J0360; J1650; J3480; J7030; Q9967

== ENCOUNTER 2025-01-28 14:20 | Emergency (ER) | payer OTHER, SELFPAY ==
[2025-01-28 15:20] LABS: Hematocrit 40.0 % (36.0-45.0); Hemoglobin 13.6 g/dL (12.0-15.0); MCH 30.9 pg (27.0-35.0); MCHC 33.9 g/dL (32.0-36.0); MCV 91.2 fL (80-100); MPV 9.1 fL (7.6-11.3); Nucleated RBC Absolute Count 0.0 (0-0); RBC Red Blood Cell Count 4.39 M/uL (3.86-4.86); White Blood Count 9.40 thou/uL (4.3-10.9)
[2025-01-28] MEDS ORDERED: ONDANSETRON 4 MG/2 ML VIAL ONE (15:26)
[2025-01-28] MEDS ORDERED: NA CHLORIDE 0.9% 1,000 ML ONE (15:29)
[2025-01-28 15:33] LABS: Absolute Lymphocytes (CBC) 3.1 K/uL (0.7-4.9); Nucleated Red Blood Cells % 0.3 % (0-0)
[2025-01-28 16:18] LABS: ALT/SGPT 25.0 U/L (13-56); AST/SGOT 11.0 U/L (15-37); Albumin 2.8 g/dL (3.4-5.0); Albumin/Globulin Ratio 0.8 (1.1-1.8); Alkaline Phosphatase 93.0 U/L (45-117); Anion Gap 5.8 mEq/L (5.0-15.0); BUN Blood Urea Nitrogen 7.0 mg/dL (7-18); Globulin 3.5 g/dL (2.3-3.5); Glucose Level 124.0 mg/dL (74-106); Lipase 14.0 U/L (13-75); Potassium 2.8 mEq/L (3.5-5.1)
[2025-01-28] MEDS ORDERED: LORazepam 2 MG/ML VIAL ONE (16:39)
[2025-01-28] MEDS ORDERED: KCL 20 MEQ/100 mL IVPB 100 ML IV ONE (16:40)
[2025-01-28] MEDS ORDERED: NA CHLORIDE 0.9% 500 ML ONE (16:40)
[2025-01-28] MEDS ORDERED: KETOROLAC 30 MG/ML INJ ONE (16:40)
--- NOTE | 2025-01-28 17:09 | RAD REPORT ---
EXAMINATION: CT ABDOMEN AND PELVIS WITH AND WITHOUT CONTRAST CLINICAL INDICATION: Abdominal pain TECHNIQUE: CT abdomen and pelvis was performed before and after the administration of IV contrast as per department protocol. 100 cc Isovue 300 administered intravenously. Axial, sagittal and coronal reconstructions were obtained. One or more of the following dose reduction techniques were used: Auto mated exposure control, adjustment of the mA and/or kV according to patient size, and/or iterative reconstruction. Unless otherwise specified, incidental findings do not require dedicated imaging foll ow-up. [id number]. COMPARISON: No prior exam. FINDINGS: The liver, kidneys, spleen, pancreas and adrenals appear unremarkable No evidence of diverticulitis Normal appendix. Umbilical hernia repair. Mild diastases rectus abdominis muscles. No adnexal mass Spondylosis lumbar spine results in mild central spinal stenosis IMPRESSION: No acute abnormalities displayed
[2025-01-28] MEDS ORDERED: FENTANYL CITR 100 MCG/2 ML ONE (17:17)
[2025-01-28] MEDS ORDERED: POTASSIUM 25 MEQ EFFERV TAB ONE (17:57)
--- NOTE | 2025-01-28 18:04 | RAD REPORT ---
EXAM: Abdominal exam Limited ultrasound CLINICAL HISTORY: Abdominal pain COMPARISON: None FINDINGS: A gallstone is not seen. Gallbladder wall not thickened. Biliary tree normal caliber IMPRESSION: No significant abnormalities displayed
--- NOTE | 2025-01-28 18:30 | EDPHYS ---
Physician Documentation [facility] Name: Bell Valverde Age: 49 yrs Sex: Female : 1975 Arrival Date: 01/28/2025 Time: 14:20 Bed 18 Private MD: ED Physician Piotr Saenz HPI: 01/28 14:35 This 49 yrs old Female presents to ER via Ambulatory with complaints of cp Abdominal Pain - RQ, Flank Pain. 14:35 The patient presents with abdominal pain right mid flank. cp 14:35 Onset: The symptoms/episode began/occurred 1.5 day(s) ago. cp 14:35 The symptoms radiate to right back. cp 14:35 Associated signs and symptoms: Pertinent negatives: chest pain, constipation, diarrhea, cp dysuria, fever, hematuria, vomiting. The symptoms are described as waxing/waning. Severity of pain: in the emergency department the pain is unchanged despite home interventions. Historical: - Allergies: 14:35 NKA; db - PMHx: 14:35 Hypertensive disorder; db - PSHx: 14:35 hernia repair; db - Immunization history:: Adult Immunizations not up to date. - Infectious Disease History:: Denies. - Social history:: Smoking status: unknown. ROS: 14:40 Constitutional: Negative for body aches, chills, fever, poor PO intake, cp 14:40 Eyes: Negative for injury, pain, redness, and discharge, cp 14:40 Cardiovascular: Negative for chest pain, palpitations, 14:40 Respiratory: Negative for cough, shortness of breath, wheezing, 14:40 Abdomen/GI: Positive for abdominal pain, Negative for vomiting, diarrhea, constipation, 14:40 : Negative for urinary symptoms, 14:40 Skin: Negative for cellulitis, rash, 14:40 Back: Positive for radiated pain, Negative for injury or acute deformity, cp 14:40 Neuro: Negative for dizziness, headache, numbness, weakness, cp 14:40 All other systems are negative, Exam: 14:45 Constitutional: The patient appears in no acute distress, alert, awake, cp non-diaphoretic, non-toxic, well developed, well nourished, obese, 14:45 Head/Face: Normocephalic, atraumatic. cp 14:45 Eyes: Periorbital structures: appear normal, Conjunctiva: normal, no exudate, no injection, Sclera: no appreciated abnormality, Lids and lashes: appear normal, bilaterally, 14:45 ENT: External ear(s): are unremarkable, Nose: is normal, Mouth: Lips: moist, Oral mucosa: moist, Posterior pharynx: Airway: no evidence of obstruction, patent, 14:45 Neck: ROM/movement: is normal, is supple, without pain, no range of motions limitations, 14:45 Chest/axilla: Inspection: normal, 14:45 Cardiovascular: Rate: normal, Rhythm: regular, Edema: is not appreciated, JVD: is not appreciated, 14:45 Respiratory: the patient does not display signs of respiratory distress, Respirations: normal, no use of accessory muscles, no retractions, labored breathing, is not present, Breath sounds: are clear throughout, no decreased breath sounds, no stridor, no wheezing, 14:45 Abdomen/GI: Inspection: abdomen appears normal, Bowel sounds: active, all quadrants, Palpation: soft, in all quadrants, moderate abdominal tenderness, in the posterior aspect of right lateral abdomen and anterior aspect of right lateral abdomen, rebound tenderness, is not appreciated, involuntary guarding, is not appreciated, 14:45 Back: vertebral tenderness, is not appreciated, 14:45 Skin: cellulitis, is not appreciated, no rash present. 14:45 Neuro: Orientation: to person, place \T\ time. Mentation: is normal, Motor: moves all fours, strength is normal, Sensation: is normal, 16:48 ECG was reviewed by the Attending Physician. cp Vital Signs: 14:30 BP 173 / 96; Pulse 90; Resp 18; Temp 98; Pulse Ox 96% on R/A; Weight 90.72 kg; Height 5 db ft. 2 in. ; 15:20 BP 164 / 72; Pulse 88; Resp 18; Pulse Ox 97% ; rg5 16:30 BP 161 / 88; Pulse 85; Resp 18; Pulse Ox 98% ; rg5 17:30 BP 160 / 85; Pulse 86; Resp 18; Pulse Ox 100% ; rg5 14:30 Body Mass Index 36.58 (90.72 kg, 157.48 cm) db MDM: 14:30 Medical Screening Exam initiated cp 16:00 Differential diagnosis: cholecystitis, Cholelithiasis, non-specific abd pain, cp pancreatitis, Pyelonephritis, Ureterolithiasis, urinary tract infection. 18:29 Data reviewed: vital signs, nurses notes, lab test result(s), radiologic studies, CT cp scan, ultrasound, and as a result, I will discharge patient. 18:29 I considered the following discharge prescriptions or medication management in the emergency department Medications were administered in the Emergency Department. See MAR. 18:29 Care significantly affected by the following chronic conditions: Hypertension, Obesity. Counseling: I had a detailed discussion with the patient and/or guardian regarding the historical points, exam findings, and any diagnostic results supporting the discharge/admit diagnosis, lab results, radiology results, to return to the emergency department if symptoms worsen or persist or if there are any questions or concerns that arise at home. Response to treatment: the patient's symptoms have mildly improved after treatment, and as a result, I will discharge patient. 01/28 14:37 Order name: CBC with Diff; Complete Time: 16:32 01/28 15:33 Interpretation: Normal except: STEFANIA% 38.4; EOSINOPHIL % 30.8; EOSA 2.9. 01/28 14:37 Order name: CMP; Complete Time: 16:32 01/28 14:37 Order name: Lipase; Complete Time: 16:32 cp 01/28 14:37 Order name: Test, Urine; Complete Time: 15:32 cp 01/28 15:32 Interpretation: Reviewed. 01/28 16:36 Order name: CT Abd/Pelvis- W/WO Contrast; Complete Time: 17:20 01/28 17:21 Order name: US Abdomen Limited: gallbladder; Complete Time: 18:12 01/28 18:12 Interpretation: Report reviewed. 01/28 16:35 Order name: EKG; Complete Time: 16:36 01/28 14:37 Order name: IV Saline Lock; Complete Time: 15:25 cp 01/28 14:37 Order name: Labs collected and sent; Complete Time: 15:25 cp 01/28 14:40 Order name: NPO; Complete Time: 14:42 cp 01/28 15:27 Order name: Labs - recollect needed: green top; Complete Time: 15:44 bc6 01/28 16:35 Order name: EKG - Nurse/Tech; Complete Time: 16:45 cp EC:48 Rate is 69 beats/min. Rhythm is regular. NH interval is normal. QRS interval is normal. cp QT interval is normal. T waves are Inverted in lead aVR. Interpreted by me. Reviewed by me. Administered Medications: 15:44 Drug: Ondansetron IVP 4 mg IVP once; over 2 minutes Route: IVP; Site: left antecubital; rg5 16:13 Follow up: Response: No adverse reaction rg5 15:44 Drug: NS 0.9% IV 1000 ml IV at 1 bolus Per protocol; to be given as a bolus over 60 rg5 minutes Route: IV; Rate: 1 bolus; Site: left antecubital; 15:47 Not Given (meds n/a): morphineor iv 4 mg IVP once over 4 mins rg5 16:46 Drug: Ketorolac IVP 30 mg IVP once Route: IVP; Site: left antecubital; rg5 17:21 Follow up: Response: No adverse reaction rg5 16:47 Drug: Ativan IVP 1 mg IVP once Route: IVP; Site: left antecubital; rg5 17:21 Follow up: Response: No adverse reaction rg5 17:00 Drug: Potassium Chloride IV 20 mEq IV at calculated rate once; administer over 1-2 rg5 hours Route: IV; Rate: calculated rate; Site: left antecubital; 18:37 Follow up: IV Status: Completed infusion; IV Intake: 100ml rg5 17:18 Drug: fentaNYL (PF) IVP 50 mcg IVP once Route: IVP; Site: left antecubital; rg5 18:29 Follow up: Response: No adverse reaction; Pain is decreased rg5 18:29 Follow up: Response: No adverse reaction; Pain is decreased rg5 18:00 Drug: Potassium PO Effervescent Tablet 50 mEq PO once; dissolve in 4 ounces of water or rg5 juice Route: PO; 18:30 Follow up: Response: No adverse reaction rg5 Disposition Summary: 01/28/25 18:29 Discharge Ordered Notes: Location: Home cp Problem: new cp Symptoms: have improved cp Condition: Stable cp Diagnosis - Abdominal pain, unspecified - right flank, musculoskeletal cp - Hypokalemia cp Followup: cp - With: Private Physician - When: 2 - 3 days - Reason: Worsening of condition Discharge Instructions: - Discharge Summary Sheet cp - Abdominal Pain, Adult cp - Potassium Content of Foods cp - Nausea and Vomiting, Adult cp Forms: - Medication Reconciliation Form cp - Antibiotic Education cp - Prescription Opioid Use cp - Patient Portal Instructions cp - Leadership Thank You Letter cp Prescriptions: - Zofran 4 mg Oral Tablet - take 1 tablet ORAL route every 12 hours As needed; 20 tablet; Refills: 0, cp Product Selection Permitted - Diclofenac Sodium 75 mg Oral tablet, delayed release (enteric coated) - take 1 tablet ORAL route 2 times per day; 20 tablet; Refills: 0, Product cp Selection Permitted - methocarbamol 750 mg Oral tablet - take 1 tablet ORAL route 3 times per day; 30 tablet; Refills: 0, Product cp Selection Permitted Signatures: Dispatcher [employer] EDMS Piotr Gu, PAShahzadC PAShahzadC Rachael Delgadillo, RN RN db Yasmin Harrison bc6 Mundo Breen RN RN rg5 Corrections: (The following items were deleted from the chart) 14:38 14:38 CBC+H.LAB.BRZ ordered. EDMS EDMS 14:38 14:38 COMPREHENSIVE METABOLIC PANEL+C.LAB.BRZ ordered. EDMS EDMS 14:38 14:38 LIPASE+C.LAB.BRZ ordered. EDMS EDMS 14:38 14:38 Test, Urine+UC.LAB.BRZ ordered. EDMS EDMS
--- NOTE | 2025-01-28 18:30 | ER ---
Nurse's Notes [facility] Name: Bell Valverde Age: 49 yrs Sex: Female : 1975 Arrival Date: 01/28/2025 Time: 14:20 Bed 18 Private MD: Diagnosis: Abdominal pain, unspecified-right flank, musculoskeletal;Hypokalemia Presentation: 01/28 14:30 Chief complaint: Patient states: ABD PAIN X 1.5 DAYS. TOOK OTC MEDS. Coronavirus db screen: Client denies travel out of the [place] in the last 14 days. At this time, the client does not indicate any symptoms associated with coronavirus-19. Ebola Screen: Patient negative for fever greater than or equal to 101.5 degrees Fahrenheit, and additional compatible Ebola Virus Disease symptoms Patient denies exposure to infectious person. Patient denies travel to an Ebola-affected area in the 21 days before illness onset. No symptoms or risks identified at this time. Initial Sepsis Screen: Does the patient meet any 2 criteria? No. Patient's initial sepsis screen is negative. Does the patient have a suspected source of infection? No. Patient's initial sepsis screen is negative. Risk Assessment: Do you want to hurt yourself or someone else? Patient reports no desire to harm self or others. Onset of symptoms was January 28, 2025. 14:30 Method Of Arrival: Ambulatory db 14:30 Acuity: AUDRA 3 db Triage Assessment: 14:35 General: Appears in no apparent distress. comfortable, Behavior is calm, cooperative. db Pain: Complains of pain in abdomen. Neuro: Level of Consciousness is awake, alert, obeys commands, Oriented to person, place, time, situation. Respiratory: Airway is patent Respiratory effort is even, unlabored, Respiratory pattern is regular, symmetrical. GI: Abdomen is non-distended. Historical: - Allergies: 14:35 NKA; db - PMHx: 14:35 Hypertensive disorder; db - PSHx: 14:35 hernia repair; db - Immunization history:: Adult Immunizations not up to date. - Infectious Disease History:: Denies. - Social history:: Smoking status: unknown. Screenin:20 [facility] ED Fall Risk Assessment (Adult) History of falling in the last 3 months, rg5 including since admission No falls in past 3 months (0 pts) Confusion or Disorientation No (0 pts) Intoxicated or Sedated No (0 pts) Impaired Gait No (0 pts) Mobility Assist Device Used No (0 pt) Altered Elimination No (0 pt) Score/Fall Risk Level 0 - 2 = Low Risk Oriented to surroundings, Maintained a safe environment. Abuse screen: Denies threats or abuse. Nutritional screening: No deficits noted. Tuberculosis screening: No symptoms or risk factors identified. Assessment: 15:20 General: Appears in no apparent distress. Behavior is calm, cooperative, appropriate rg5 for age. Pain: Complains of pain in abdomen. Neuro: Level of Consciousness is awake, alert, obeys commands, Oriented to person, place, time, situation. Cardiovascular: Patient's skin is warm and dry. Respiratory: Airway is patent Trachea midline Respiratory effort is even, unlabored. GI: Abdomen is round obese, Bowel sounds present in left lower quadrant Abd is soft and non tender Reports upper abdominal pain. : No signs and/or symptoms were reported regarding the genitourinary system. EENT: No signs and/or symptoms were reported regarding the EENT system. Derm: Skin is intact, Skin is dry, Skin is normal. 15:20 Musculoskeletal: Circulation, motion, and sensation intact. Range of motion: intact in rg5 all extremities. 16:30 Reassessment: No changes from previously documented assessment. Patient and/or family rg5 updated on plan of care and expected duration. Pain level reassessed. Patient is alert, oriented x 3, equal unlabored respirations, skin warm/dry/pink. 17:31 Reassessment: Patient and/or family updated on plan of care and expected duration. Pain rg5 level reassessed. Patient is alert, oriented x 3, equal unlabored respirations, skin warm/dry/pink. 18:36 Reassessment: Patient and/or family updated on plan of care and expected duration. Pain rg5 level reassessed. Patient is alert, oriented x 3, equal unlabored respirations, skin warm/dry/pink. Patient states feeling better. Patient states symptoms have improved. Vital Signs: 14:30 BP 173 / 96; Pulse 90; Resp 18; Temp 98; Pulse Ox 96% on R/A; Weight 90.72 kg; Height 5 db ft. 2 in. ; 15:20 BP 164 / 72; Pulse 88; Resp 18; Pulse Ox 97% ; rg5 16:30 BP 161 / 88; Pulse 85; Resp 18; Pulse Ox 98% ; rg5 17:30 BP 160 / 85; Pulse 86; Resp 18; Pulse Ox 100% ; rg5 14:30 Body Mass Index 36.58 (90.72 kg, 157.48 cm) db ED Course: 14:24 Patient arrived in ED. cj3 14:25 Piotr Gu [facility]-C [facility]. cp 14:25 Piotr Saenz MD is Attending Physician. cp 14:35 Triage completed. db 14:35 Arm band placed on Patient placed in an exam room. db 15:14 Mundo Breen, ABRAM is Primary Nurse. rg5 15:20 Patient has correct armband on for positive identification. Bed in low position. Call rg5 light in reach. Side rails up X 1. Door closed. Noise minimized. 15:20 No provider procedures requiring assistance completed. rg5 15:25 Initial lab(s) drawn, by petroleum refinery laborer, sent to lab. Inserted saline lock: 20 gauge in left ts3 antecubital area, using aseptic technique. Blood collected. Flushed with 10 mL NS. 15:25 Urine collected: clean catch specimen, sent to lab. ts3 16:45 EKG done, by sterile processing tech. reviewed by Piotr Gu PA-C. ts3 16:49 CT Abd/Pelvis- W/WO Contrast In Process Unspecified. EDMS 17:47 US Abdomen Limited: gallbladder In Process Unspecified. EDMS 18:48 IV discontinued, bleeding controlled, No redness/swelling at site. Pressure dressing rg5 applied. Administered Medications: 15:44 Drug: Ondansetron IVP 4 mg IVP once; over 2 minutes Route: IVP; Site: left antecubital; rg5 16:13 Follow up: Response: No adverse reaction rg5 15:44 Drug: NS 0.9% IV 1000 ml IV at 1 bolus Per protocol; to be given as a bolus over 60 rg5 minutes Route: IV; Rate: 1 bolus; Site: left antecubital; 15:47 Not Given (meds n/a): morphineor iv 4 mg IVP once over 4 mins rg5 16:46 Drug: Ketorolac IVP 30 mg IVP once Route: IVP; Site: left antecubital; rg5 17:21 Follow up: Response: No adverse reaction rg5 16:47 Drug: Ativan IVP 1 mg IVP once Route: IVP; Site: left antecubital; rg5 17:21 Follow up: Response: No adverse reaction rg5 17:00 Drug: Potassium Chloride IV 20 mEq IV at calculated rate once; administer over 1-2 rg5 hours Route: IV; Rate: calculated rate; Site: left antecubital; 18:37 Follow up: IV Status: Completed infusion; IV Intake: 100ml rg5 17:18 Drug: fentaNYL (PF) IVP 50 mcg IVP once Route: IVP; Site: left antecubital; rg5 18:29 Follow up: Response: No adverse reaction; Pain is decreased rg5 18:29 Follow up: Response: No adverse reaction; Pain is decreased rg5 18:00 Drug: Potassium PO Effervescent Tablet 50 mEq PO once; dissolve in 4 ounces of water or rg5 juice Route: PO; 18:30 Follow up: Response: No adverse reaction rg5 Medication: 15:20 VIS not applicable for this client. rg5 Intake: 18:37 IV: 100ml; Total: 100ml. rg5 Outcome: 18:29 Discharge ordered by . michael 18:48 Discharged to home ambulatory, rg5 18:48 Condition: stable 18:48 Discharge instructions given to patient, Instructed on discharge instructions, Demonstrated understanding of instructions, Prescriptions given X 3, 18:48 Patient left the ED. rg5 Signatures: Dispatcher [employer] EDRI Piotr Gu PA-C PA-C cp Benton, Danielle, RN RN db Gallardo, Rommel, RN RN rg5 Whit Villafana 3 Niecy Madrigal 3
[2025-01-28 19:42] VITALS: TEMP 98
[2025-01-28 19:59] VITALS: BP 160/85; O2SAT 100
== END 2025-01-28 18:48 | disposition home or self-care (01) ==
LOC: ER 14:20
DX: R10.A1 Flank pain, right side (principal); E87.6 Hypokalemia
CPT/HCPCS: 36415; 74178; 76705; 80053; 81025; 83690; 85025; 93005; 96365; 96366; 96375; 99284; J1885; J2405; J3010; J3480; J7030; J7040; Q9967